=== PATIENT | male | born 1985 | race Caucasian/White ===

== ENCOUNTER 2019-08-30 21:01 | Emergency (ER) | payer OTHER, SELFPAY ==
[2019-08-30 21:24] VITALS: BP 156/94; PULSE 95; RESP 18; TEMP 36.4; O2SAT 97; BMI 33.4
--- NOTE | 2019-08-30 22:21 | ED_ITS ---
Entered by Ade Hoffmann, acting as scribe for Schuyler Hedrick DO Aug 30, 2019 21:01 HPI - General Adult General: Chief complaint: General Medical Stated complaint: sinus problems Time Seen by Provider: 08/30/19 22:21 Source: patient Mode of arrival: ambulatory Limitations: no limitations History of Present Illness: HPI narrative: 33 yo m came to the [facility] for sinus problems. Onset was saturday. Pt states that he went to urgent care last week and they gave him a shot. Pt states that he has a productive cough, runny nose and sore throat. MD complaint: SINUS PROBLEMS Onset (ago): day(s) (2 days ago) Severity: mild Pain Consistency: constant Relieving factors: none Exacerbating factors: none Associated symptoms: Reports cough; Deny chest pain, nausea, rash, palpitations or vomiting Review of Systems General: Reports: other (negative unless marked) Const: Denies: fever, chills or body aches Eyes: Denies: blurry vision ENMT: Reports: throat pain, hoarseness and nasal congestion Card: Denies: chest pain, palpitations or swelling of feet/ankles Resp: Reports: productive cough and chest congestion GI: Denies: abdominal pain, nausea or vomiting : Denies: difficulty urinating or painful urination Skin/Breast: Denies: rash, itching or redness PFSH ED PFSH: Statuses (acute, chronic, etc) shown below reflect problem list status as previously entered and may not be historically accurate Social History Smoking and tobacco status: never smoked Physical Exam Const: GENERAL APPEARANCE: well developed ORIENTATION/CONSCIOUSNESS: Yes oriented to person, Yes oriented to place and Yes oriented to time HENMT: FACE & SINUS: normal facial exam NOSE: mucous membranes and turbinates abnormal (Right greater than left) boggy and erythematous MOUTH: tongue normal THROAT: posterior oropharynx abnormal erythema; no peritonsillar mass Eye: COMMON NORMALS: PERRL, EOMs intact bilaterally and conjunctivae normal EYELID: eyelids normal CONJUNCTIVA: Yes conjunctivae normal PUPIL: Yes PERRL Neck/C-Spine: COMMON NORMALS: full ROM GENERAL: No tracheal deviation Chest: COMMONS NORMALS: inspection of chest normal CHEST: No tenderness Resp: COMMON NORMALS: clear to auscultation bilaterally EFFORT & INSPECTION: No tachypneic, No respiratory distress, No retractions, No uses accessory muscles and No tracheal deviation AUSCULTATION: clear to auscultation bilaterally, no rhonchi, no wheezes and lung sounds not diminished Cardio: COMMON NORMALS: regular rate and regular rhythm RATE: regular rate RHYTHM: regular rhythm HEART SOUNDS: no murmurs PERIPHERAL PULSES: radial pulses present GI: INSPECTION: No abdominal distension AUSCULTATION: No hyperactive bowel sounds and No hypoactive bowel sounds PALPATION: No guarding and No rigid PERCUSSION: no dullness to percussion and no tympanic to percussion Neuro: SENSORIUM/ORIENTATION: Yes oriented to person, Yes oriented to place and Yes oriented to time Psych: COMMON NORMALS: mental status grossly normal Skin: COMMON NORMALS: no rashes or lesions noted GENERAL SKIN EXAM: no rashes or lesions noted Course Vital Signs: Vital signs: Vital Signs Temperature 97.8 F 08/30/19 23:12 Pulse Rate 85 08/30/19 23:12 Respiratory Rate 16 08/30/19 23:12 Blood Pressure 148/96 08/30/19 23:12 Pulse Oximetry 97 08/30/19 23:12 Discharge Plan Discharge Patient Disposition: Home, Self-Care Clinical Impression: Sinusitis, acute Qualifiers: Sinusitis location: unspecified location Recurrence: not specified as recurrent Qualified Code(s): J01.90 - Acute sinusitis, unspecified Condition: Stable Prescriptions: New doxycycline hyclate 100 mg capsule 100 mg PO BID 7 Days Qty: 14 RF: 0 phenylephrine-guaifenesin 10-400 mg tablet 1 tab PO Q8H PRN (Reason: congestion) Qty: 20 RF: 0 Medrol (Michi) 4 mg tablets,dose pack See Rx Instructions .ROUTE .COMPLEX Qty: 21 RF: 0 Discharge Orders: Discharge Order (Routine); Ordered 08/30/19 Ordered By: Schuyler Hedrick Referrals: Noemí Valencia FNP [Primary Care Provider] - Discharge Diet: Usual diet Discharge Activity: Resume usual activity Patient Instructions: Sinusitis (ED) Activity Restrictions/Additional Instructions: Return for shortness of breath, fever greater than 100 despite 2-3 doses of antibiotics, other concerning symptoms. Discharge Date/Time: 08/30/19 23:15 Coding Level of Care Code ED Resident Surgeon for Chg Fwd The documentation recorded by the Shun pereira Stephanie Lyn, accurately reflects the service I personally performed and the decisions made by me, Schuyler Hedrick, Aug 30, 2019 21:01
[2019-08-30] MEDS: predniSONE 20 mg Tablet 40 MG PO (22:58)
[2019-08-30] MEDS: doxycycline 100 mg Tablet PO (22:58)
[2019-08-30 23:12] VITALS: BP 148/96; PULSE 85; RESP 16; TEMP 36.6; O2SAT 97
== END 2019-08-30 23:15 | disposition home or self-care (01) ==
PROVIDERS: Emergency Provider Emergency Medicine; Family Provider Nurse Practitioner; PCP Nurse Practitioner
DX: J01.90 Acute sinusitis, unspecified (principal)
CPT/HCPCS: 99281; 99283; J7512

== ENCOUNTER 2020-01-06 00:05 | Emergency (ER) | payer OTHER, SELFPAY ==
[2020-01-06 00:14] VITALS: BP 137/91; PULSE 75; RESP 16; TEMP 36.7; O2SAT 96; BMI 33.4
[2020-01-06 00:18] VITALS: BP 147/95; PULSE 76; PULSE 81; RESP 18; TEMP 36.7; O2SAT 96
--- NOTE | 2020-01-06 00:21 | W.ED.UPPEXIN ---
HPI - Extremity Injury (Upper) General: Chief Complaint: Extremity Injury, Upper Stated Complaint: L THUMB INJURY Time Seen by Provider: 01/06/20 00:14 Source: patient Mode of arrival: ambulatory Limitations: no limitations History of Present Illness: HPI narrative: pt reports he was at work when he cut L thumb with a grinder and plater; tetanus UTD complaint: injury to: left and finger Onset (ago): hour(s) Other Extremity Injury: Left: fingers Other injuries: none Place: work Relieving factors: none Exacerbating factors: none Associated symptoms: Reports no associated symptoms Treatments prior to arrival: bandage Review of Systems Skin/Breast: Reports: other (laceration to L thumb) Neuro: Denies: numbness in extremities or sensory changes PFSH ED PFSH: Social History Smoking and tobacco status: current every day smoker Physical Exam Const: COMMON NORMALS: no acute distress, average body habitus, patient oriented x3, no limitations, healthy appearing, alert and well nourished Extremity: OTHER: pt has a shallow 0.75cm laceration to tip of L thumb involving dorsal surface; laceration extends from tip of finger and barely into his nail; there is no gapping to the laceration; bleeding is controlled; there is no indicated for closure at this time Neuro: COMMON NORMALS: patient oriented x3 SENSORIUM/ORIENTATION: Yes alert Skin: OTHER: see extremity assessment Course Vital Signs: Vital signs: Vital Signs Temperature 98.0 F 01/06/20 00:18 Pulse Rate 76 01/06/20 00:18 Respiratory Rate 18 01/06/20 00:18 Blood Pressure 147/95 01/06/20 00:18 Pulse Oximetry 96 01/06/20 00:18 MDM - Extremity Injury (Upper) Imaging Data^: L thumb XR: My impression: NAD Discharge Plan Discharge Patient Disposition: Home, Self-Care Clinical Impression: Laceration of left thumb Qualifiers: Encounter type: initial encounter Damage to nail status: with damage Foreign body presence: without foreign body Qualified Code(s): S61.112A - Laceration without foreign body of left thumb with damage to nail, initial encounter Condition: Stable Prescriptions: No Action phenylephrine-guaifenesin 10-400 mg tablet 1 tab PO Q8H PRN (Reason: congestion) Qty: 20 RF: 0 Medrol (Michi) 4 mg tablets,dose pack See Rx Instructions .ROUTE .COMPLEX Qty: 21 RF: 0 Discharge Orders: Discharge Order (Routine); Ordered 01/06/20 Ordered By: Niesha Astudillo Referrals: Noemí Valencia FNP [Primary Care Provider] - Patient Instructions: Laceration (ED) Activity Restrictions/Additional Instructions: Keep wound clean with warm soap and water. Monitor for signs of infection such as redness, swelling, drainage. Follow-up with Worker's Comp as instructed. Coding Level of Care Code ED Clinical Pharmacist for Chg Fwd Exam Problem Focused
--- NOTE | 2020-01-06 00:22 | XR_ITS ---
WS: [id number] XR finger LT min 2V [id number] REASON FOR EXAM: thumb; trauma FINDINGS: The proximal phalanx of the first digit suggest a small avulsion fracture. No gross deformi ty is seen other than soft tissue swelling. XR/XR finger LT min 2V [id number] IMPRESSION: Nondisplaced fracture of the proximal first phalanx.
[2020-01-06 01:04] VITALS: BP 145/92; PULSE 84; RESP 18; TEMP 36.7
== END 2020-01-06 01:07 | disposition home or self-care (01) ==
PROVIDERS: Emergency Provider Physician Assistant; PCP Nurse Practitioner
DX: S61.112A Laceration without foreign body of left thumb with damage to nail, initial encounter (principal); W45.8XXA Other foreign body or object entering through skin, initial encounter; F17.210 Nicotine dependence, cigarettes, uncomplicated
CPT/HCPCS: 12345; 73140; 99281; 99283

== ENCOUNTER 2022-09-26 16:41 | Emergency (ER) | payer OTHER, SELFPAY ==
[2022-09-26 17:22] VITALS: BP 150/91; PULSE 101; RESP 19; TEMP 36.5; O2SAT 96; BMI 31.9
--- NOTE | 2022-09-26 17:57 | XR_ITS ---
WS: [id number] Left foot, 3 views, 09/26/2022 Clinical Data: crush injury Comparison: Left foot, 09/24/2022 Findings: No fractures or dislocations are seen. No bone destruction or erosion is noted. The joint spaces and soft tissues are normal. XR/XR foot LT min 3V* [id number] Impression: Negative left foot.
--- NOTE | 2022-09-26 20:42 | W.ED.EXTPRO ---
HPI - Extremity Problem General: Chief complaint: Extremity Injury, Lower Stated complaint: dropped metal on left foot Time Seen by Provider: 09/26/22 20:38 Source: patient Mode of arrival: ambulatory Limitations: no limitations History of Present Illness: 36-year-old male who states he dropped a large piece of metal on his foot 3 days ago he had an x-ray at outpatient clinic he is unsure what it showed but they told him it was negative he states he had worsening bruising some pain he is able to ambulate rates his pain a 2 out of 10 its worse with ambulating improved with rest denies any fevers denies any redness Associated symptoms: Deny chest pain, fever(s) or rash Review of Systems Const: Denies: fever(s), chills, body aches or change in appetite Eyes: Denies: blurry vision or eye discomfort ENMT: Denies: throat pain or dental pain Card: Denies: chest pain Resp: Denies: dyspnea GI: Denies: abdominal pain, nausea, vomiting or diarrhea : Denies: dysuria Musc: Reports: extremity pain and extremity swelling Skin/Breast: Denies: rash Neuro: Denies: headache(s) Psych: Denies: depression Alvaro/Lymph: Denies: easy bruising All/Imm: Denies: urticaria PFSH ED PFSH: Medical History Essential hypertension Major depression Social History Smoking and tobacco status: current every day smoker smokeless tobacco Alcohol intake: current Alcohol intake frequency: holidays/special occasions only Adopted: No Caregiver/support person: No Lives independently: No Household members: spouse Housing: House Marital status: Number of children: 2 Highest education level completed: High School Graduate service: No Current occupational status: employed Current occupational exposures/hazards: Yes Pets and animals: No Sexually active: Yes Current gender identity: Male Physical Exam Const: COMMON NORMALS: no acute distress and patient oriented x3 HENMT: COMMON NORMALS: normocephalic and atraumatic HEAD & SCALP: normocephalic and atraumatic Eye: COMMON NORMALS: conjunctivae normal CONJUNCTIVA: Yes conjunctivae normal Neck/C-Spine: COMMON NORMALS: supple Chest: COMMONS NORMALS: normal inspection of the chest Resp: COMMON NORMALS: normal respiratory effort Cardio: COMMON NORMALS: regular rate RATE: regular rate GI: INSPECTION: Yes normal to inspection Extremity: NARRATIVE EXTREMITY EXAM: Bruising to the left foot slight tenderness no obvious deformity no redness distal pulses intact Neuro: COMMON NORMALS: patient oriented x3 Psych: COMMON NORMALS: mental status grossly normal Skin: COMMON NORMALS: no rashes or lesions noted GENERAL SKIN EXAM: no rashes or lesions noted Course Vital Signs: Vital signs: Vital Signs Temperature 97.7 F 09/26/22 17:22 Pulse Rate 101 H 09/26/22 17:22 Respiratory Rate 19 H 09/26/22 17:22 Blood Pressure 150/91 09/26/22 17:22 Pulse Oximetry 96 09/26/22 17:22 Oxygen Delivery Me thod 09/26/22 17:22 MDM - Extremity (Nontraumatic) Medical Decision Making Patient presents with a left foot contusion x-ray shows no fracture he is to [place] wrap ice we will place him on Naprosyn follow-up and return if worsening Discharge Plan Discharge Patient Disposition: Home Clinical Impression: Contusion of foot, left Condition: Stable Prescriptions: New Naprosyn 500 mg tablet 500 mg PO BID PRN (Reason: pain) Qty: 20 0RF No Action duloxetine [Cymbalta] 20 mg capsule,delayed release(DR/EC) 20 mg PO BID Qty: 60 2RF losartan 50 mg tablet 50 mg PO DAILY Qty: 90 1RF doxycycline hyclate 100 mg tablet 100 mg PO BID 7 Days Qty: 14 0RF Discharge Orders: Discharge ED (Routine); Ordered 09/26/22 Ordered By: Melanie Kulkarni Referrals: Naman Hayes DO [Primary Care Provider] - 1-3 days Discharge Diet: Advance as tolerated Discharge Activity: Resume usual activity Patient Instructions: Foot Contusion (ED) Coding Level of Care Code ED Loader Operator/Ground Leader for Concha Sutton
[2022-09-26 20:55] VITALS: BP 140/70; PULSE 90; RESP 18; O2SAT 99
== END 2022-09-26 20:57 | disposition home or self-care (01) ==
PROVIDERS: Emergency Provider Emergency Medicine; PCP Family Medicine
DX: S90.32XA Contusion of left foot, initial encounter (principal); W20.8XXA Other cause of strike by thrown, projected or falling object, initial encounter; I10 Essential (primary) hypertension; F17.220 Nicotine dependence, chewing tobacco, uncomplicated
CPT/HCPCS: 73630; 99283

== ENCOUNTER → 2023-01-23 11:52 | Outpatient (BNVA) | payer BC, OTHER, SELFPAY | PROVIDERS: PCP Family Medicine; Visit Provider Family Medicine | DX: F32.0 Major depressive disorder, single episode, mild (principal); I10 Essential (primary) hypertension; R53.82 Chronic fatigue, unspecified; N52.9 Male erectile dysfunction, unspecified; F32.9 Major depressive disorder, single episode, unspecified; Z11.4 Encounter for screening for human immunodeficiency virus [HIV]; Z11.59 Encounter for screening for other viral diseases | CPT/HCPCS: 80053; 80061; 84403; 84443; 85025; 85651; 86140; 86803; 87806 ==

== ENCOUNTER 2024-06-21 20:55 | Emergency (ER) | payer SELFPAY ==
[2024-06-21 21:09] VITALS: BP 156/81; PULSE 88; RESP 18; TEMP 36.6; O2SAT 97; BMI 29.7
--- NOTE | 2024-06-21 21:59 | ED_ITS ---
Documented by User: [email or web address] Up 06/21/24 22:03 HPI - URI/Sore Throat General: Chief Complaint: Upper Respiratory Infection Stated Complaint: cough, running nose, fever Time Seen by Provider: 06/21/24 21:17 Source: patient Mode of arrival: ambulatory Limitations: no limitations History of Present Illness: Patient is a 38-year-old male who presents to the emergency department for upper respiratory symptoms going on a week. Was seen in urgent care, requested steroid shot but they gave prescription and he states has not helped. States he normally gets sinus infections around this time, but this time it has been worse. He states he can feel the infection settling in his chest, and he does have a productive cough. No fever, chills, shortness of breath, or other symptoms. He is specifically requesting a shot of Decadron as this has helped in the past. Also notes taking fish antibiotics which have not been helping. MD elicited complaint: other (Upper respiratory symptoms) Pertinent past history: sinusitis Onset (ago): week(s) Consistency: progressively worsening Severity: moderate Associated symptoms: Reports nasal congestion and sinus pain; Deny abdominal pain, chills, chest pain, diarrhea, ear or mastoid pain, fever(s), headache(s), nausea or vomiting Treatments prior to arrival: other (Prednisone) Related Data Previous Rx's Medication Instructions Recorded prednisone 10 mg tablet 30 mg (3 x 10 mg) PO DAILY #15 tabs 06/20/24 doxycycline hyclate 100 mg tablet 100 mg PO BID 7 days #14 tabs 06/21/24 Allergies Allergy/AdvReac Type Severity Reaction Status Date / Time azithromycin Allergy ALGY-Rash Verified 06/20/24 14:31 Penicillins Allergy Unknown Verified 06/20/24 14:31 tramadol Allergy Unknown Verified 06/20/24 14:31 Review of Systems General: Reports: 10 or more systems reviewed and unremarkable except in HPI and below Const: Denies: fever(s), chills or fatigue Eyes: Denies: change in vision ENMT: Reports: nasal discharge, nasal congestion and sinus pain; Denies: throat pain or ear or mastoid pain Card: Denies: chest pain, palpitations, swelling of feet/ankles or lightheadedness Resp: Reports: productive cough; Denies: dyspnea or wheezing GI: Denies: abdominal pain, nausea, vomiting, diarrhea or constipation : Denies: flank pain, difficulty urinating, dysuria or urinary frequency Musc: Denies: neck pain, back pain or joint pain Skin/Breast: Denies: rash Neuro: Denies: headache(s), numbness in extremities or weakness in extremities PFSH ED PFSH: Medical History Essential hypertension Major depression Social History Smoking and tobacco/nicotine status: former use of tobacco/nicotine Alcohol intake: current Alcohol intake frequency: holidays/special occasions only Substance/Drug Use: never Adopted: No Caregiver/support person: No Lives independently: No Household members: spouse Housing: House Marital status: Number of children: 2 Highest education level completed: High School Graduate service: No Current occupational status: employed Current occupational exposures/hazards: Yes Pets and animals: No Sexually active: Yes Do you think of yourself as: Straight/Heterosexual Current gender identity: Male Physical Exam Const: COMMON NORMALS: no acute distress and healthy appearing GENERAL APPEARANCE: cooperative, comfortable and well developed HENMT: COMMON NORMALS: normocephalic, atraumatic, hearing grossly normal bilaterally, external ears normal, EAC's normal, TM's normal bilaterally, Normal external nose present and Normal nasal mucous membranes and turbinates present HEAD & SCALP: normal to inspection, normocephalic and atraumatic FACE & SINUS: normal facial exam and Facial tenderness on exam of face and sinuses bilaterally (Frontal sinuses) NOSE: Normal external nose present, Normal nares present, No nasal polyps present and Normal nasal mucous membranes and turbinates present EXTERNAL EAR: Yes external ears normal EXTERNAL AUDITORY CANAL: EAC's normal TYMPANIC MEMBRANE: TM's normal bilaterally MOUTH: Normal oral and palatal mucosa present THROAT: posterior oropharynx normal and tonsils normal Eye: COMMON NORMALS: EOMs intact bilaterally and conjunctivae normal GENERAL EYE: appearance normal, both eyes and all related structures CONJUNCTIVA: Yes conjunctivae normal Neck/C-Spine: COMMON NORMALS: full ROM, no lymphadenopathy, supple and no meningeal signs GENERAL: Yes normal visual inspection Chest: COMMONS NORMALS: normal inspection of the chest Resp: COMMON NORMALS: normal respiratory effort and clear to auscultation bilaterally AUSCULTATION: clear to auscultation bilaterally Cardio: COMMON NORMALS: regular rate, regular rhythm, S1 normal heart sound present and S2 normal heart sound present RATE: regular rate RHYTHM: regular rhythm HEART SOUNDS: S1 normal heart sound present, S2 normal heart sound present, no gallops, no murmurs and no rubs GI: COMMON NORMALS: Soft to palpation and No hepatosplenomegaly present INSPECTION: Yes normal to inspection PALPATION: Yes Soft to palpation and Yes No hepatosplenomegaly present Extremity: COMMON NORMALS: normal to inspection, full ROM and capillary refill normal Neuro: MENINGEAL SIGNS: Yes no meningeal signs Skin: COMMON NORMALS: no rashes or lesions noted GENERAL SKIN EXAM: no rashes or lesions noted Course Vital Signs: Vital signs: Vital Signs Temperature 97.9 F 06/21/24 21:09 Pulse Rate 88 06/21/24 21:09 Respiratory Rate 18 06/21/24 21:09 Blood Pressure 156/81 06/21/24 21:09 Pulse Oximetry 97 06/21/24 21:09 Oxygen Delivery Me thod Room Air 06/21/24 21:09 MDM - URI/Sore Throat Medical Decision Making Patient reporting history of bacterial sinusitis, no relief from p.o. prednisone states he normally gets relief from a shot and he is requesting this at this time. With production of cough and longevity of symptoms will also start on a short course of antibiotics. Swab for COVID/flu/RSV pending at this time though he is ready for discharge home. Instructed him to follow-up routinely with primary care and return with any new or worsening. Lab Data Laboratory Results Coronavirus (PCR) Negative (Negative) 06/21/24 21:20 Influenza A (PCR) Negative (Negative) 06/21/24 21:20 Influenza Type B (PCR) Negative (Negative) 06/21/24 21:20 RSV (PCR) Negative (Negative) 06/21/24 21:20 No radiology studies performed this visit Discharge Plan Discharge Patient Disposition: Home Clinical Impression: Acute bacterial sinusitis Condition: Stable Prescriptions: New doxycycline hyclate 100 mg tablet 100 mg PO BID 7 Days Qty: 14 0RF No Action prednisone 10 mg tablet 30 mg PO DAILY Qty: 15 0RF Discharge Orders: Discharge ED (Routine); Ordered 06/21/24 Ordered By: Sky Alas Referrals: Naman Hayes DO [Primary Care Provider] - Patient Instructions: Sinusitis (ED) Activity Restrictions/Additional Instructions: Take doxycycline as prescribed. You may continue taking your prednisone at home. Other [id number] medication such as Zyrtec or Flonase for symptomatic relief. Follow-up with primary care as needed and return with any new or worsening. Coding Level of Care Code ED Cooking Instructor for Chg Fwd Documented by User: Schuyler Hedrick DO 06/21/24 22:47 HPI - URI/Sore Throat General: Chief Complaint: Upper Respiratory Infection Stated Complaint: cough, running nose, fever Time Seen by Provider: 06/21/24 21:17 Related Data Previous Rx's Medication Instructions Recorded prednisone 10 mg tablet 30 mg (3 x 10 mg) PO DAILY #15 tabs 06/20/24 doxycycline hyclate 100 mg tablet 100 mg PO BID 7 days #14 tabs 06/21/24 Allergies Allergy/AdvReac Type Severity Reaction Status Date / Time azithromycin Allergy ALGY-Rash Verified 06/20/24 14:31 Penicillins Allergy Unknown Verified 06/20/24 14:31 tramadol Allergy Unknown Verified 06/20/24 14:31 PFSH ED PFSH: Medical History Essential hypertension Major depression Social History Smoking and tobacco/nicotine status: former use of tobacco/nicotine Alcohol intake: current Alcohol intake frequency: holidays/special occasions only Substance/Drug Use: never Adopted: No Caregiver/support person: No Lives independently: No Household members: spouse Housing: House Marital status: Number of children: 2 Highest education level completed: High School Graduate service: No Current occupational status: employed Current occupational exposures/hazards: Yes Pets and animals: No Sexually active: Yes Do you think of yourself as: Straight/Heterosexual Current gender identity: Male Course Vital Signs: Vital signs: Vital Signs Temperature 97.9 F 06/21/24 21:09 Pulse Rate 88 06/21/24 21:09 Respiratory Rate 18 06/21/24 21:09 Blood Pressure 156/81 06/21/24 21:09 Pulse Oximetry 97 06/21/24 21:09 Oxygen Delivery Me thod Room Air 06/21/24 21:09 MDM - URI/Sore Throat Medical Decision Making Patient reporting history of bacterial sinusitis, no relief from p.o. prednisone states he normally gets relief from a shot and he is requesting this at this time. With production of cough and longevity of symptoms will also start on a short course of antibiotics. Swab for COVID/flu/RSV pending at this time though he is ready for discharge home. Instructed him to follow-up routinely with primary care and return with any new or worsening. This patient was originally seen by Mr. Evette PA-C.? I agree with his history, evaluation, and treatment. Lab Data Laboratory Results Coronavirus (PCR) Negative (Negative) 06/21/24 21:20 Influenza A (PCR) Negative (Negative) 06/21/24 21:20 Influenza Type B (PCR) Negative (Negative) 06/21/24 21:20 RSV (PCR) Negative (Negative) 06/21/24 21:20 Discharge Plan Discharge Patient Disposition: Home Clinical Impression: Acute bacterial sinusitis Condition: Stable Prescriptions: New doxycycline hyclate 100 mg tablet 100 mg PO BID 7 Days Qty: 14 0RF No Action prednisone 10 mg tablet 30 mg PO DAILY Qty: 15 0RF Discharge Orders: Discharge ED (Routine); Ordered 06/21/24 Ordered By: Sky Alas Referrals: Naman Hayes DO [Primary Care Provider] - Patient Instructions: Sinusitis (ED) Activity Restrictions/Additional Instructions: Take doxycycline as prescribed. You may continue taking your prednisone at home. Other ukvv-apl-pogfara medication such as Zyrtec or Flonase for symptomatic relief. Follow-up with primary care as needed and return with any new or worsening. Coding Level of Care Code ED Cooking Instructor for Concha Sutton
[2024-06-21] MEDS: doxycycline 100 mg Tablet PO (22:03)
[2024-06-21] MEDS: dexamethasone 10 mg/mL INJ IM (22:03)
[2024-06-21 22:10] LABS: Covid PCR NEGATIVE (Negative); Influenza A NEGATIVE (Negative); Influenza B NEGATIVE (Negative); Respiratory Syncytial Virus Ce NEGATIVE (Negative)
== END 2024-06-21 22:08 | disposition home or self-care (01) ==
PROVIDERS: Emergency Provider Physician Assistant; PCP Family Medicine
DX: J01.90 Acute sinusitis, unspecified (principal); B96.89 Other specified bacterial agents as the cause of diseases classified elsewhere; Z11.52 Encounter for screening for COVID-19
CPT/HCPCS: 0241U; 96372; 99284; J1100

== ENCOUNTER → 2025-03-22 16:50 | Outpatient (BNVA) | payer SELFPAY | PROVIDERS: PCP Family Medicine; Visit Provider Registered Nurse Neonatal Intensive Care | DX: J02.9 Acute pharyngitis, unspecified (principal) | CPT/HCPCS: 87880 ==